=== PATIENT | female | born 1975 | race African-American/Black ===

== ENCOUNTER 2017-01-31 11:30 | Emergency (ER) | payer SELFPAY ==
[~2017-01-31] VITALS: Ht 165.1 cm; Wt 108.9 kg
[~2017-01-31 11:30] MED LIST: CYCLOBENZAPRINE10 MG ORAL; IBUPROFEN600 MG ORAL; NKM
[2017-01-31 11:54] VITALS: BP 107/71
[2017-01-31] MEDS ORDERED: IBUPROFEN800 MG ORAL (12:05)
[2017-01-31] MEDS ORDERED: Metoclopramide 10mg/10ml Liq ORAL ONE (12:15)
[2017-01-31 12:39] VITALS: BP 107/71
--- NOTE | 2017-02-05 17:33 | Emergency Room Report ---
History of Present Illness General Chief Complaint: Headache Source: Patient Present Illness HPI 41-year-old female walks in with chief complaint of left-sided headache for multiple days. Denies headache weeks her up and sleep, and ice headache worse in morning. Denies associated fever, chills, neck stiffness, pain, photophobia, sick contacts. Nice history of intracranial bleed, aneurysm. Taking oral medication with relief Allergies: Coded Allergies: No Known Allergies (Unverified , 10/29/13) Patient History Past Medical History: none Past Surgical History: none Pertinent Family History: none Social History: Denies: smoking, alcohol use, drug use Last Menstrual Period: 01/13/17 Now: Yes : 2 Para: 2 Immunizations: UTD Reviewed Nursing Documentation: PMH: Agreed, PSxH: Agreed Nursing Documentation-PMH Past Medical History: No History, Except For Hx Asthma: Yes Review of Systems All Other Systems: negative except mentioned in HPI Physical Exam Vital Signs Date Time Temp Pulse Resp B/P (MAP) Pulse Ox O2 Delivery O2 Flow Rate FiO2 01/31/17 11:41 98.1 80 18 107/71 98 Room Air Sp02 EP Interpretation: reviewed, normal General Appearance: normal inspection, well appearing, no apparent distress, alert, GCS 15, non-toxic Head: normocephalic, atraumatic Eyes: bilateral eye PERRL, bilateral eye EOMI ENT: normal ENT inspection, hearing grossly normal, normal voice Neck: normal inspection, full range of motion, supple, no meningismus, no bony tend Respiratory: normal inspection, lungs clear, normal breath sounds, no respiratory distress, no retraction, no wheezing Cardiovascular #1: regular rate, rhythm, no edema Gastrointestinal: normal inspection, normal bowel sounds, non tender, soft, no guarding, no hernia Genitourinary: no CVA tenderness Musculoskeletal: normal inspection, back normal, normal range of motion, Andrei' s Sign negative Neurologic: normal inspection, alert, oriented x3, responsive, 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, speech normal Psychiatric: normal inspection, judgement/insight normal, mood/affect normal Skin: normal inspection, normal color, no rash Lymphatic: normal inspection Medical Decision Making Diagnostic Impression: Primary Impression: Tension headache ER Course 41-year-old female with likely tension headache versus migraine less likely Signs stable Afebrile Focal neurological deficits Unlikely SAH or meningitis given well appearance, normal vital signs, no focal neurological deficits, and duration advied only Tylenol [id number] as needed for her headache given Close PMD followup DC home Last Vital Signs Date Time Temp Pulse Resp B/P (MAP) Pulse Ox O2 Delivery O2 Flow Rate FiO2 01/31/17 12:39 98.1 18 107/71 98 Room Air 01/31/17 11:41 80 Status: improved Disposition: HOME, SELF-CARE Condition: Improved Scripts Ibuprofen* (MOTRIN*) 800 Mg Tablet 800 MG ORAL THREE TIMES A DAY for 7 Days, #30 TAB 0 Refills Prov: PATRICIA ALONSO M.D. 01/31/17 Referrals: NOT CHOSEN [facility]/,REFERRING (PCP) Patient Instructions: Tension Headache Additional Instructions: - Take ibuprofen every 8hours with food for headache - Follow up with your doctor for recurrent headaches PATRICIA ALONSO M.D. Feb 05, 2017 17:33
== END 2017-01-31 12:43 | disposition home or self-care (01) ==
LOC: EMR 12:03
DX: G44.209 Tension-type headache, unspecified, not intractable (principal); J45.909 Unspecified asthma, uncomplicated
CPT/HCPCS: 99282